=== PATIENT | male | born 1965 ===

== ENCOUNTER 2025-04-21 10:45 | Inpatient (IN) | payer OTHER ==
[~2025-04-21] VITALS: Ht 185.4 cm; Wt 93.0 kg
[2025-04-21 14:04] LABS: BASO % 0.4 % (0.1-1.2); EOS # 0.09 (0.04-0.54); EOS % 1.1 % (0.7-7.0); LYMPH # 2.98 (1.18-3.74); LYMPH % 37.8 % (19.3-53.1); MEAN PLATELET VOLUME 11.20 fl (9.4-12.4); MONO # 0.67 (0.24-0.82); MONO % 8.5 % (4.7-12.5); NEUT # 4.10 (1.56-6.13); NEUT % 51.9 % (34.0-71.1); RED CELL DISTRIBUTION WIDTH 13.0 % (11.6-14.4)
[2025-04-21 14:06] LABS: URINE APPEARANCE Clear; URINE BACTERIA 10.7 uL (0.0-1933); URINE BILIRRUBIN Negative (NEGATIVE); URINE BLOOD Negative; URINE COLOR Yellow; URINE KETONE Negative (NEGATIVE); URINE LEUKOCYTE Negative; URINE NITRATE Negative; URINE PROTEIN Negative (NEGATIVE); URINE UROBILINOGEN 0.2 E.U./dl
[2025-04-21 14:10] LABS: URINE CAST 0.00 uL (0.0-1.40); URINE EPITHELIAL CELLS 1.0 uL (0.0-38.8); URINE GLUCOSE >=1000 MG/DL (NEGATIVE); URINE RBC 0.7 uL (0.0-20.8); URINE WBC 1.2 uL (0.0-23.2)
[2025-04-21 14:46] LABS: INR 1.08
[2025-04-21 14:47] LABS: ALT/SGPT 42.0 U/L (12-78); AST/SGOT 34.0 U/L (15-37); BILIRUBIN TOTAL 0.55 mg/dL (0.3-1.2); BUN CREA RATIO 17.0 (7.0-25.0); CREATININE SERUM 0.94 mg/dL (0.70-1.30); GFR 82.14; GLOBULINA 3.8 G/DL (2.4-3.5); GLUCOSE FASTING 131.0 mg/dL (65-100); OSMOLALITY SERUM 286.0 MOSM/KG (275-295)
[2025-04-21 16:39] VITALS: BP 140/90
[2025-04-23] MEDS ORDERED: DEXAMETHASONE SODIUM PHOSPHATE 4 MG/ML VIAL ONE (15:37)
[2025-04-23] MEDS ORDERED: CEFAZOLIN SODIUM 1,000 MG VIAL ONE (16:07)
[2025-04-23] MEDS ORDERED: ENALAPRILAT DIHYDRATE 1.25 MG/ML VIAL IV PRN (19:15)
[2025-04-23] MEDS ORDERED: ONDANSETRON HCL 2 MG/ML VIAL IV PRN (19:15)
[2025-04-23] MEDS ORDERED: PANTOPRAZOLE SODIUM 40 MG/VIAL VIAL IV PUSH SCH (21:00)
[2025-04-23] MEDS ORDERED: Calcium Carbonate 1 TAB TABLET PO SCH (21:00)
[2025-04-23 21:40] VITALS: BP 156/95; O2SAT 95
[2025-04-24] MEDS ORDERED: TRAMADOL HCL 50 MG TABLET PO SCH (01:00)
[2025-04-24] MEDS ORDERED: ACETAMINOPHEN 500 MG GEL..CAP PO SCH (01:00)
[2025-04-24 08:15] VITALS: BP 130/68; O2SAT 95
[2025-04-24] MEDS ORDERED: DIPHENHYDRAMINE HCL 75 MG,LIDOCAINE HCL 30 ML,MAG HYDROX/ALUMINUM HYD/SIMETH 30 ML PO SCH (09:00)
[2025-04-24] MEDS ORDERED: CALCIUM CARBONATE/VITAMIN D3 1 TAB TABLET PO NR (12:15)
[2025-04-24] MEDS ORDERED: CALCITRIOL 0.5 MCG CAPSULE PO NR (12:15)
[2025-04-24] MEDS ORDERED: CYCLOBENZAPRINE HCL 5 MG TABLET PO SCH (17:00)
[2025-04-25] MEDS ORDERED: LEVOTHYROXINE SODIUM 137 MCG TABLET PO SCH (06:00)
== END 2025-04-24 15:11 | disposition home or self-care (01) | DRG 627 ==
LOC: SURG 04-23 09:00 → O/R 04-23 09:00 → SURH 04-23 10:45 → SURG 04-23 19:43
PROVIDERS: ADMIT Surgery; ATTEND Surgery
PROC: 0GTK0ZZ Resection of Thyroid Gland, Open Approach (ICD-10-PCS; principal; 2025-04-23 15:30)
DX: C73 Malignant neoplasm of thyroid gland (principal)